=== PATIENT | male | born 1995 | race Two or more races ===

== ENCOUNTER 2018-06-20 23:06 | Emergency (ER) | payer BC, MEDICAID, OTHER ==
[~2018-06-20] VITALS: Ht 172.7 cm; Wt 65.8 kg
[2018-06-20 23:49] LABS: Basophils # (auto) 0 uL; Basophils % (auto) 0.3 % (0.0-2.0); Eosinophils # (auto) 0.1 uL; Eosinophils % (auto) 1.7 % (0.0-7.0); Hematocrit 46.5 % (41.0-53.0); Hemoglobin 15.7 g/dL (13.5-17.5); Lymphocytes # (auto) 1.6 uL; Lymphocytes % (auto) 24.6 % (10.0-50.0); Mean Corpuscular Hemoglobin 31.2 pg (28.0-32.0); Mean Corpuscular Hgb Conc. 33.8 g/dL (32.0-36.0); Mean Corpuscular Volume 92.1 fL (80.0-100.0); Monocytes # (auto) 0.5 uL; Monocytes % (auto) 8.6 % (0.0-12.0); Neutrophils # (auto) 4.1 uL; Neutrophils % (auto) 64.8 % (37.0-80.0); Platelet Count (auto) 278 10^3/uL (140-450); Red Blood Cells 5.05 10^6/uL (4.5-5.90); Red Cell Distribution Width 13.1 % (11.8-14.3); White Blood Cell 6.4 10^3/uL (4.4-10.8)
[2018-06-21 00:03] LABS: Chloride 109 mmol/L (98-107); Potassium 3.2 mmol/L (3.5-5.1); Sodium 142 mmol/L (136-145)
[2018-06-21 00:06] LABS: Albumin 3.9 g/dL (3.4-5.0); Anion Gap 9 (5-15); Blood Urea Nitrogen 12 mg/dL (7-18); Calcium 8.5 mg/dL (8.5-10.1); Carbon Dioxide 24 mmol/L (21-32); Glucose 107 mg/dL (74-106)
[2018-06-21 00:11] LABS: Alanine Aminotransferase 22 U/L (16-61); Alkaline Phosphatase 106 U/L (45-117); Aspartate Aminotransferase 16 U/L (15-37); BUN/Creatinine Ratio 15.4; Bilirubin, Total 0.1 mg/dL (0.2-1.0); GFR African American 162 mL/min; GFR Non-African American 134 mL/min; Total Protein 7.3 g/dL (6.4-8.2)
[2018-06-21 04:01] VITALS: BP 126/73
== END 2018-06-21 05:12 | disposition home or self-care (01) ==
LOC: EDBD 23:06 → ER 23:09
DX: R07.89 Other chest pain (principal); K21.9 Gastro-esophageal reflux disease without esophagitis
CPT/HCPCS: 36415; 71045; 80053; 84484; 85025

== ENCOUNTER 2018-11-04 01:49 | Emergency (ER) | payer BC, OTHER ==
[~2018-11-04] VITALS: Ht 182.9 cm; Wt 90.7 kg
[2018-11-04 02:02] VITALS: BP 155/55
== END 2018-11-04 03:40 | disposition left against medical advice (07) ==
LOC: ER 01:54
DX: M25.572 Pain in left ankle and joints of left foot (principal); Z53.21 Procedure and treatment not carried out due to patient leaving prior to being seen by health care provider
CPT/HCPCS: 73610

== ENCOUNTER 2022-01-09 06:37 | Emergency (ER) | payer SELFPAY ==
[~2022-01-09] VITALS: Ht 182.9 cm; Wt 86.9 kg
[2022-01-09 07:21] VITALS: BP 125/87
[2022-01-09] MEDS ORDERED: methylPREDNISolone SOD SUCC 125 MG/2 ML VL IM ONE (07:30)
[2022-01-09] MEDS ORDERED: cefTRIAXone SOD 1,000 MG VL IM ONE (07:30)
[2022-01-09] MEDS ORDERED: AZIT500T66 PO (07:34)
[2022-01-09] MEDS ORDERED: PRED20TA2 PO (07:34)
== END 2022-01-09 08:04 | disposition home or self-care (01) ==
LOC: ER 06:37
DX: J03.90 Acute tonsillitis, unspecified (principal); J20.9 Acute bronchitis, unspecified; F17.210 Nicotine dependence, cigarettes, uncomplicated
CPT/HCPCS: 96372; 99284; J0696; J2930